=== PATIENT | female | born 1930 | race Caucasian/White ===

== ENCOUNTER 2016-03-17 09:37 | Outpatient (CLI) | payer MEDICARE, OTHER | END 2016-03-17 09:38 | disposition home or self-care (01) | DX: I10 Essential (primary) hypertension (principal); I25.10 Atherosclerotic heart disease of native coronary artery without angina pectoris; E78.00 Pure hypercholesterolemia, unspecified ==

== ENCOUNTER 2016-06-07 10:28 | Outpatient (CLI) | payer MEDICARE, OTHER | END 2016-06-07 10:29 | disposition home or self-care (01) | DX: E11.9 Type 2 diabetes mellitus without complications (principal) ==

== ENCOUNTER 2016-07-20 11:44 | Outpatient (CLI) | payer MEDICARE, OTHER ==
--- NOTE | 2016-07-21 10:08 | Mammography Report ---
DIGITAL BILATERAL SCREENING MAMMOGRAM: 07/20/2016 CLINICAL HISTORY: An 86-year-old female in for routine screening mammogram. The patient has no family history of breast cancer. The patient has had no prior breast surgeries. COMPARISON: 09/08/2006, 10/10/2007, 10/07/2008, 10/24/2009, 11/03/2010, 11/10/2011, 05/28/2013, 05/30. TECHNIQUE: Craniocaudad and oblique lateral views of each breast were obtained with [facility] profile d igital mammography. Exaggerated craniocaudad views were done bilaterally to complement the present ex am. FINDINGS: No significant clusters of calcification are seen. No significant masses are noted. No sig nificant change is seen. IMPRESSION: THE BREASTS APPEAR RADIOGRAPHICALLY BENIGN. BIRADS CATEGORY 1-NEGATIVE. RECOMMENDATION: ANNUAL BILATERAL SCREENING MAMMOGRAPHY. STANDARD QUALIFYING STATEMENTS 1. This examination was reviewed with the aid of Computer-Aided Detection (CAD). 2. A negative or benign imaging report should not delay biopsy if clinically suspicious findings are present. Consider surgical consultation if warranted. More than 5% of cancers are not identified by i maging. 3. Dense breasts may obscure an underlying neoplasm. JOB #: [id number] EXT JOB #:[id number]
== END 2016-07-20 11:45 | disposition home or self-care (01) ==
LOC: DI.S 11:44
PROVIDERS: ATTEND Family Medicine
DX: Z12.31 Encounter for screening mammogram for malignant neoplasm of breast (principal)
CPT/HCPCS: 77067

== ENCOUNTER 2016-07-20 12:43 | Outpatient (CLI) | payer MEDICARE, OTHER ==
[2016-07-20 18:37] LABS: BASOPHILS % (AUTO) 0.8 %; EOSINOPHILS # (AUTO) 0.3 10^3/uL (0.0-0.7); EOSINOPHILS % (AUTO) 4.1 %; HCT - HEMATOCRIT 36.6 % (37.0-47.0); LYMPHOCYTES # (AUTO) 1.6 10^3/uL (1.5-3.5); LYMPHOCYTES % (AUTO) 24.6 %; MEAN CORPUSCULAR HEMOGLOBIN 32.2 pg (27.0-31.0); MEAN CORPUSCULAR HGB CONC 32.7 g/dL (32.0-36.0); MEAN CORPUSCULAR VOLUME 98.3 fL (81.0-99.0); MEAN PLATELET VOLUME 9.1 fL (7.9-10.8); MONOCYTES # (AUTO) 0.7 10^3/uL (0.0-1.0); MONOCYTES % (AUTO) 10.5 %; NEUTROPHILS # (AUTO) 3.8 10^3/uL (1.5-6.6); RED BLOOD COUNT 3.72 10^6/uL (4.20-5.40); RED CELL DISTRIBUTION WIDTH 13.4 % (12.0-15.0); UNCORRECTED WHITE BLOOD COUNT 6.4 x10^3/uL; WHITE BLOOD COUNT 6.4 x10^3/uL (4.8-10.8)
[2016-07-20 18:40] LABS: ALBUMIN/GLOBULIN RATIO 1.5 (1.0-2.2); BILIRUBIN,TOTAL 0.6 mg/dL (0.2-1.0); CALCIUM 8.9 mg/dL (8.5-10.3); POTASSIUM 4.2 mmol/L (3.5-5.0); TOTAL PROTEIN 6.5 g/dL (6.7-8.2)
[2016-07-20 18:43] LABS: PT - PROTHROMBIN TIME 11.5 secs (9.9-12.6)
== END 2016-07-20 12:44 | disposition home or self-care (01) ==
LOC: LAB.F 12:43
PROVIDERS: ATTEND Internal Medicine
DX: I73.9 Peripheral vascular disease, unspecified (principal); I25.10 Atherosclerotic heart disease of native coronary artery without angina pectoris; E78.00 Pure hypercholesterolemia, unspecified
CPT/HCPCS: 36415; 80053; 85025; 85610

== ENCOUNTER 2016-12-10 09:31 | Outpatient (CLI) | payer MEDICARE, OTHER ==
[2016-12-10 18:40] LABS: ALBUMIN/GLOBULIN RATIO 1.1 (1.0-2.2); BILIRUBIN,TOTAL 0.4 mg/dL (0.2-1.0); BUN - BLOOD UREA NITROGEN 19 mg/dL (6-20); CARBON DIOXIDE - CO2 27 mmol/L (21-32); CHLORIDE 106 mmol/L (101-111); CHOL/HDL RATIO 2.6 (<4.4); CHOLESTEROL 157 mg/dL; GFR - MDRD 53 (>89); GLUCOSE 102 mg/dL (70-100); HDL CHOLESTEROL 60 mg/dL; LDL/HDL RATIO 1.4 (<4.4); POTASSIUM 4.2 mmol/L (3.5-5.0); SODIUM 141 mmol/L (135-145); TOTAL PROTEIN 6.8 g/dL (6.7-8.2); TRIGLYCERIDES 57 mg/dL; VLDL CHOLESTEROL 11 mg/dL
[2016-12-10 19:22] LABS: HEMOGLOBIN A1C 0.56 g/dL
== END 2016-12-10 09:32 | disposition home or self-care (01) ==
LOC: LAB.F 09:31
PROVIDERS: ATTEND Family Medicine
DX: I73.9 Peripheral vascular disease, unspecified (principal); I25.10 Atherosclerotic heart disease of native coronary artery without angina pectoris; E78.5 Hyperlipidemia, unspecified; E11.9 Type 2 diabetes mellitus without complications; I10 Essential (primary) hypertension; Z79.899 Other long term (current) drug therapy
CPT/HCPCS: 36415; 80053; 80061; 82043; 83036

== ENCOUNTER 2017-03-04 10:34 | Outpatient (CLI) | payer MEDICARE, OTHER ==
[2017-03-04 18:48] LABS: CALCIUM 9.5 mg/dL (8.5-10.3); CREATININE 0.9 mg/dL (0.4-1.0)
[2017-03-04 21:01] LABS: HB2 TOTAL 13.2 g/dL; HEMOGLOBIN A1C 0.55 g/dL
== END 2017-03-04 10:35 | disposition home or self-care (01) ==
LOC: LAB.F 10:34
PROVIDERS: ATTEND Family Medicine
DX: E78.5 Hyperlipidemia, unspecified (principal); E11.9 Type 2 diabetes mellitus without complications; I10 Essential (primary) hypertension
CPT/HCPCS: 36415; 80048; 83036

== ENCOUNTER 2017-03-14 12:20 | Emergency (ER) | payer MEDICARE, OTHER ==
--- NOTE | 2017-03-14 13:31 | XRAY Preliminary Report ---
Exam: XR CHEST 2 VIEW X-RAY IMPRESSION: Normal 2-view chest radiography. [facility] SITE ID: [id number]
--- NOTE | 2017-03-14 13:38 | XRAY Report ---
EXAM: CHEST RADIOGRAPHY EXAM DATE: 03/14/2017 01:12 PM. CLINICAL HISTORY: Cough. COMPARISON: 02/05/2009. TECHNIQUE: 2 views. FINDINGS: Lungs/Pleura: No focal opacities evident. No pleural effusion. No pneumothorax. Normal volumes. Mediastinum: Heart and mediastinal contours are unremarkable. Other: None. IMPRESSION: Normal 2-view chest radiography. [facility] Referring Provider Line: [phone] SITE ID: [id number]
--- NOTE | 2017-03-14 13:53 | ED Physician Documentation ---
History of Present Illness - Stated complaint Stated Complaint: GLF/FLU LIKE SYMPTOMS - Chief complaint Chief Complaint: Neuro - Additonal information Additional information: 86 y/o f hx HTN HLD DM sick for 3-5 days - sore throat fever myalgias cough severe fatigue with similar 2 days ago while standing at the counter talking she had syncope with no prodrom and collasped and fell firts onto her bottom then striking her head, brief LOC per SO, no CP palp or other sx first, FLEMING neck pain better but still tehre, also sactrum pain, no numbness or weakness Review of Systems Constitutional: reports: Fever, Chills, Myalgias Nose: reports: Congestion Respiratory: reports: Cough Musculoskeletal: reports: Neck pain Neurologic: reports: Headache. denies: Focal weakness, Numbness Endocrine: denies: Easy bruising / bleeding PD PAST MEDICAL HISTORY - Past Medical History Cardiovascular: Hypertension, High cholesterol Respiratory: None Endocrine/Autoimmune: Type 2 diabetes GI: None : None HEENT: None Psych: None Musculoskeletal: None Derm: None - Past Surgical History General: Cholecystectomy, Appendectomy, Colonoscopy - Present Medications Home Medications: Ambulatory Orders Medication Instructions Recorded Confirmed Atorvastatin [Lipitor] 40 mg PO DAILY 10/17/14 03/14/17 Benazepril HCl 40 mg PO DAILY 10/17/14 03/14/17 Metoprolol Succinate [Toprol Xl] 50 mg PO BID 10/17/14 03/14/17 Pregabalin [Lyrica] 100 mg PO DAILY 10/17/14 03/14/17 carBAMazepine [TEGretol] 100 mg PO DAILY 10/17/14 03/14/17 metFORMIN [Glucophage] 500 mg PO DAILY 10/17/14 03/14/17 Benzonatate [Tessalon] 100 mg PO TID PRN #20 capsule 03/14/17 Oseltamivir [Tamiflu] 75 mg PO BID #9 capsule 03/14/17 - Allergies Allergies/Adverse Reactions: Allergies Allergy/AdvReac Type Severity Reaction Status Date / Time azithromycin [From Zithromax] Allergy Hives Verified 03/14/17 12:45 Penicillins Allergy Hives Verified 03/14/17 12:45 PD ED PE NORMAL - Vitals Vital signs reviewed: Yes - General General: Alert and oriented X 3 - HEENT HEENT: Atraumatic, PERRL - Neck Neck: No: No bony TTP (diffuse) - Cardiac Cardiac: RRR - Respiratory Respiratory: No respiratory distress, Clear bilaterally - Abdomen Abdomen: Soft, Non tender - Back Back: Other (TTP sacral area) - Derm Derm: Normal color - Extremities Extremities: No deformity, Normal ROM s pain - Neuro Neuro: No motor deficit, No sensory deficit Results - Vitals Vitals: Vital Signs - 24 hr 03/14/17 12:41 Temperature 36.8 C Heart Rate 64 Respiratory 16 Rate Blood Pressure 126/95 H O2 Saturation 97 Oxygen O2 Source Room air - EKG (time done) 1401 Rate: Rate (enter#) (64) Rhythm: NSR Intervals: Normal AK Ischemia: Normal ST segments, Q waves (inferior c/w old process) - Labs Labs: Laboratory Tests 03/14/17 03/14/17 03/14/17 13:35 13:35 13:35 WBC 6.1 RBC 3.74 L Hgb 11.7 L Hct 35.2 L MCV 94.1 MCH 31.4 H MCHC 33.4 RDW 13.7 Plt Count 170 MPV 8.4 Neut # 4.7 Lymph # 0.6 L [place] # 0.8 Eos # 0.0 Baso # 0.0 Absolute Nucleated RBC 0.00 Nucleated RBC % 0.0 Sodium 133 L Potassium 4.5 Chloride 98 L Carbon Dioxide 22 Anion Gap 13.0 BUN 28 H Creatinine 1.0 Estimated GFR (MDRD) 53 L Glucose 144 H Calcium 8.8 Troponin I Influenza A (Rapid) POSITIVE H Influenza B (Rapid) Negative Influenza Types A,B Ag + H 03/14/17 13:35 WBC RBC Hgb Hct MCV MCH MCHC RDW Plt Count MPV Neut # Lymph # [place] # Eos # Baso # Absolute Nucleated RBC Nucleated RBC % Sodium Potassium Chloride Carbon Dioxide Anion Gap BUN Creatinine Estimated GFR (MDRD) Glucose Calcium Troponin I < 0.04 Influenza A (Rapid) Influenza B (Rapid) Influenza Types A,B Ag - Rads (name of study) CTH Radiology: See rad report (no acute) CTCS Radiology: See rad report (no acute) CXR Radiology: See rad report (poor insp but per rad no acute) pelvis Radiology: See rad report (no acute) sacrum Radiology: See rad report (no acute) PD MEDICAL DECISION MAKING - ED course ED course: influenza A syncope 2 days ago while standing up - could have been 2/2 illness and dehydration, NSR in ER and no further epsiodes for 2 days, feel safe to dc with tamiflu and dont think pt needs further inpt work up for syncope in this setting of having infuenza Departure - Departure Disposition: Home, Self Care Clinical Impression: Influenza A Condition: Good Instructions: ED Flu, Medication: Tamiflu (Oseltamivir) Follow-Up: Jose Luis Crespo MD [Primary Care Provider] - Prescriptions: Benzonatate [Tessalon] 100 mg PO TID PRN #20 capsule PRN Reason: to ease cough Oseltamivir [Tamiflu] 75 mg PO BID #9 capsule Comments: You CT scans and xrays were fine - no major injuries from your fall and no pneumonia At this point it seems likely you pass out secondary to be sick with the flu and dehydrated. I think it is safe for you to go home for now. But influenza can be very serious and some patients get pneumonia after being weakened by the flu - so if you feels worse in any way, please come back to the ER Please follow up with Dr Crespo - he may want to get an ultrasound of you heart and/or a wear at home heart monitor to be sure there is no other reason for you to have passed out
[2017-03-14 13:58] LABS: BASOPHILS % (AUTO) 0.5 %; EOSINOPHILS % (AUTO) 0.4 %; HGB - HEMOGLOBIN 11.7 g/dL (12.0-16.0); LYMPHOCYTES # (AUTO) 0.6 10^3/uL (1.5-3.5); MEAN CORPUSCULAR HEMOGLOBIN 31.4 pg (27.0-31.0); MEAN CORPUSCULAR HGB CONC 33.4 g/dL (32.0-36.0); MEAN CORPUSCULAR VOLUME 94.1 fL (81.0-99.0); MEAN PLATELET VOLUME 8.4 fL (7.9-10.8); MONOCYTES # (AUTO) 0.8 10^3/uL (0.0-1.0); MONOCYTES % (AUTO) 12.6 %; NEUTROPHILS # (AUTO) 4.7 10^3/uL (1.5-6.6); NEUTROPHILS % (AUTO) 77.5 %; PLT - PLATELET COUNT 170 10^3/uL (130-450); RED BLOOD COUNT 3.74 10^6/uL (4.20-5.40); RED CELL DISTRIBUTION WIDTH 13.7 % (12.0-15.0); WHITE BLOOD COUNT 6.1 x10^3/uL (4.8-10.8)
[2017-03-14 14:03] LABS: CALCIUM 8.8 mg/dL (8.5-10.3)
--- NOTE | 2017-03-14 15:14 | CT Report ---
EXAM: CT HEAD EXAM DATE: 03/14/2017 02:49 PM. CLINICAL HISTORY: Fall HI. COMPARISON: None. TECHNIQUE: Multiaxial CT images were obtained from the foramen magnum to the vertex. Reformats: Coron al. IV contrast: None. In accordance with CT protocol optimization, one or more of the following dose reduction techniques w ere utilized for this exam: automated exposure control, adjustment of mA and/or KV based on patient s ize, or use of iterative reconstructive technique. FINDINGS: Parenchyma: There is a moderate degree of diffuse periventricular and subcortical white matter hypode nsity. No midline shift. Negative for intracranial hemorrhage. Extraaxial Spaces: No subdural or epidural collections identified. Ventricles: Normal in size and position. Sinuses and Orbits: Imaged paranasal sinuses, orbits, and mastoids show no significant abnormality. Bones: No evidence of fracture or calvarial defect. Other: None. IMPRESSION: 1. Negative for intracranial hemorrhage or mass effect. 2. Moderate nonfocal white matter disease. Nonspecific but most commonly attributed to chronic microa ngiopathy. [facility] Referring Provider Line: [phone] SITE ID: [id number]
--- NOTE | 2017-03-14 15:14 | CT Preliminary Report ---
Exam: CT HEAD W/O IMPRESSION: 1. Negative for intracranial hemorrhage or mass effect. 2. Moderate nonfocal white matter disease. Nonspecific but most commonly attributed to chronic microa ngiopathy. [facility] SITE ID: [id number]
--- NOTE | 2017-03-14 15:19 | CT Report ---
EXAM: CT CERVICAL SPINE WITHOUT CONTRAST DATE: 03/14/2017 02:55 PM. HISTORY: Fall HI neck pain. COMPARISONS: None. TECHNIQUE: Thin-section axial images were acquired of the cervical spine without contrast. Post-proce ssing: Coronal and sagittal reformats. Other: None. In accordance with CT protocol optimization, one or more of the following dose reduction techniques w ere utilized for this exam: automated exposure control, adjustment of mA and/or KV based on patient s ize, or use of iterative reconstructive technique. FINDINGS: Alignment: There is 2 mm of retrolisthesis at C5-C6. Bones: No acute fracture. There is multilevel degenerative disease. There is periarticular calcificat ion around the anterior C1 and C2 articulation. Interspace Levels/Facets: There is moderate to severe disk height loss and endplate sclerosis with spurring at C5-C6 and C6-C7. There is moderate disk height loss at C2-C3 and C4-C5. Musculature: Normal. No fatty atrophy. Other: The paravertebral and prevertebral soft tissues are unremarkable. Trachea is midline. Lung api cortney appear clear. IMPRESSION: 1. Multilevel degenerative disk disease with disk osteophyte spurring, greatest at C5-C6. No fracture . Mild degenerative retrolisthesis at C5-C6. [facility] Referring Provider Line: [phone] SITE ID: [id number]
--- NOTE | 2017-03-14 15:19 | CT Preliminary Report ---
Exam: CT CERVICAL SPINE W/O IMPRESSION: 1. Multilevel degenerative disk disease with disk osteophyte spurring, greatest at C5-C6. No fracture . Mild degenerative retrolisthesis at C5-C6. [facility] SITE ID: [id number]
--- NOTE | 2017-03-14 15:22 | XRAY Preliminary Report ---
Exam: XR PELVIS 1 VIEW IMPRESSION: Degenerative changes. No evidence for acute fracture. [facility] SITE ID: [id number]
--- NOTE | 2017-03-14 15:22 | XRAY Preliminary Report ---
Exam: XR SACRUM/COCCYX IMPRESSION: Degenerative changes. No evidence for acute fracture. [facility] SITE ID: [id number]
--- NOTE | 2017-03-14 15:22 | XRAY Report ---
EXAM: PELVIS RADIOGRAPHY ONE VIEW SACRUM/COCCYX RADIOGRAPHY 3 VIEWS EXAM DATE: 03/14/2017 03:05 PM. CLINICAL HISTORY: Fall pain. COMPARISON: None. FINDINGS: Bones: No evidence for acute fracture. Joints: Mild bilateral hip, sacroiliac and pubic symphysis degenerative joint disease. No dislocation . Severe degenerative disk disease at L5-S1. Soft Tissues: No acute findings seen. IMPRESSION: Degenerative changes. No evidence for acute fracture. [facility] Referring Provider Line: [phone] SITE ID: [id number]
--- NOTE | 2017-03-14 15:22 | XRAY Report ---
EXAM: PELVIS RADIOGRAPHY ONE VIEW SACRUM/COCCYX RADIOGRAPHY 3 VIEWS EXAM DATE: 03/14/2017 03:05 PM. CLINICAL HISTORY: Fall pain. COMPARISON: None. FINDINGS: Bones: No evidence for acute fracture. Joints: Mild bilateral hip, sacroiliac and pubic symphysis degenerative joint disease. No dislocation . Severe degenerative disk disease at L5-S1. Soft Tissues: No acute findings seen. IMPRESSION: Degenerative changes. No evidence for acute fracture. [facility] Referring Provider Line: [phone] SITE ID: [id number]
[2017-03-14] MEDS ORDERED: OSELTAMIVIR 75 MG CAPSULE PO STA (16:24)
[2017-03-14 17:11] VITALS: BP 124/59
== END 2017-03-14 17:16 | disposition home or self-care (01) ==
LOC: ED 12:20
DX: J10.1 Influenza due to other identified influenza virus with other respiratory manifestations (principal); R55 Syncope and collapse; Z91.81 History of falling; I10 Essential (primary) hypertension; E11.9 Type 2 diabetes mellitus without complications; E78.00 Pure hypercholesterolemia, unspecified; Z79.84 Long term (current) use of oral hypoglycemic drugs
CPT/HCPCS: 36415; 70450; 71046; 72125; 72170; 72220; 80048; 84484; 85025; 87275; 87276; 93005; 99283; 99284; A9270

== ENCOUNTER 2017-04-11 10:35 | Outpatient (CLI) | payer MEDICARE, OTHER ==
--- NOTE | 2017-04-11 15:17 | DEXA Report ---
DEXA SCAN: 04/11/2017 CLINICAL INDICATION: Osteoporosis. TECHNIQUE: Dual energy x-ray absorptiometry (DXA) was performed on a babbel system. Regions measured are the AP spine, femoral neck, and, if needed, forearm. COMPARISON: None. In accordance with the International Society for Clinical Densitometry (ISCD) guidelines, data from previous exams may be reanalyzed using current recommendations and techniques. This is done to allow a more accurate basis for comparison with the current study. FINDINGS The data for the lumbar spine is as follows: REGION BMD (g/cm/cm) T-SCORE Z-SCORE L1 1.443 2.6 4.7 L2 1.514 2.6 4.7 L3 1.695 4.1 6.2 L4 1.917 6.0 8.0 TOTAL 1.642 3.8 5.9 NOTE: All evaluable vertebrae are used for classification. The data for the hip is as follows: REGION BMD (g/cm/cm) T-SCORE Z-SCORE Neck 0.829 -1.5 1.0 TOTAL 0.892 -0.9 1.5 NOTE: The femoral neck or total proximal femur, whichever is lowest, is used for classification. IMPRESSION: THE WHO CLASSIFICATION BASED ON THE INTERNATIONAL REFERENCE STANDARD IS OSTEOPENIA (REFERENCE LEFT FEMORAL NECK). THE FRACTURE RISK IS INCREASED. RECOMMENDATION: Patients with diagnosis of osteoporosis or osteopenia should have regular bone mineral density assessment. For those eligible for Medicare, routine testing is allowed once every 2 years. Testing frequency can be increased for patients who have rapidly progressing disease or for those who are receiving medical therapy to restore bone mass. COMMENT: World Health Organization (WHO) definitions for osteoporosis and osteopenia: NORMAL BMD: T-score at 1.0 or higher, fracture risk is low. OSTEOPENIA BMD: T-score between 1.0 and -2.5, fracture risk is increased. OSTEOPOROSIS BMD: T-score at 2.5 or lower, fracture risk high. National Osteoporosis Foundation recommends: 1. Obtain adequate dietary calcium (at least 1200 mg per day) and vitamin D (400 -800 international units per day). 2. Participate, as appropriate, in regular weightbearing and muscle- strengthening exercise. 3. Avoid tobacco use and reduce alcohol and caffeine intake. 4. For more detailed information see the website at www.NOF.org. TD: 04/11/2017 12:19 MTDD
== END 2017-04-11 10:36 | disposition home or self-care (01) ==
LOC: DI 10:35
PROVIDERS: ATTEND Family Medicine
DX: M85.88 Other specified disorders of bone density and structure, other site (principal)
CPT/HCPCS: 77080

== ENCOUNTER 2017-05-23 09:05 | Outpatient (CLI) | payer MEDICARE, OTHER ==
[2017-05-23 17:48] LABS: BASOPHILS # (AUTO) 0.1 10^3/uL (0.0-0.1); BASOPHILS % (AUTO) 0.9 %; EOSINOPHILS # (AUTO) 0.6 10^3/uL (0.0-0.7); EOSINOPHILS % (AUTO) 9.1 %; HGB - HEMOGLOBIN 12.1 g/dL (12.0-16.0); LYMPHOCYTES # (AUTO) 1.2 10^3/uL (1.5-3.5); LYMPHOCYTES % (AUTO) 19.5 %; MEAN CORPUSCULAR HEMOGLOBIN 31.6 pg (27.0-31.0); MEAN CORPUSCULAR HGB CONC 32.4 g/dL (32.0-36.0); MEAN CORPUSCULAR VOLUME 97.5 fL (81.0-99.0); MEAN PLATELET VOLUME 8.5 fL (7.9-10.8); MONOCYTES # (AUTO) 0.7 10^3/uL (0.0-1.0); MONOCYTES % (AUTO) 11.5 %; NEUTROPHILS # (AUTO) 3.6 10^3/uL (1.5-6.6); PLT - PLATELET COUNT 233 10^3/uL (130-450); RED BLOOD COUNT 3.83 10^6/uL (4.20-5.40); RED CELL DISTRIBUTION WIDTH 14.5 % (12.0-15.0); WHITE BLOOD COUNT 6.1 x10^3/uL (4.8-10.8)
[2017-05-23 18:11] LABS: ALBUMIN 3.7 g/dL (3.2-5.5); ALBUMIN/GLOBULIN RATIO 1.3 (1.0-2.2); ALKALINE PHOSPHATASE 61 IU/L (42-121); ALT ALANINE AMINOTRANSFERASE 29 IU/L (10-60); AST ASPARTATE AMINOTRANSFERASE 29 IU/L (10-42); BILIRUBIN,TOTAL 0.6 mg/dL (0.2-1.0); BUN - BLOOD UREA NITROGEN 27 mg/dL (6-20); CALCIUM 8.9 mg/dL (8.5-10.3); CARBON DIOXIDE - CO2 26 mmol/L (21-32); CHLORIDE 107 mmol/L (101-111); CHOL/HDL RATIO 2.6 (<4.4); CHOLESTEROL 149 mg/dL; CREATININE 0.8 mg/dL (0.4-1.0); GFR - MDRD 68 (>89); GLUCOSE 106 mg/dL (70-100); HDL CHOLESTEROL 57 mg/dL; LDL CHOLESTEROL,CALCULATED 81 mg/dL; LDL/HDL RATIO 1.4 (<4.4); SODIUM 140 mmol/L (135-145); TOTAL PROTEIN 6.5 g/dL (6.7-8.2); VLDL CHOLESTEROL 11 mg/dL
== END 2017-05-23 09:06 | disposition home or self-care (01) ==
LOC: LAB.S 09:05
PROVIDERS: ATTEND Internal Medicine
DX: I25.10 Atherosclerotic heart disease of native coronary artery without angina pectoris (principal); E78.00 Pure hypercholesterolemia, unspecified
CPT/HCPCS: 36415; 80053; 80061; 83721; 84443; 85025

== ENCOUNTER 2017-05-31 08:00 | Outpatient (CLI) | payer MEDICARE, OTHER ==
[2017-05-31 17:27] LABS: CALCIUM 9.2 mg/dL (8.5-10.3); CREATININE 0.9 mg/dL (0.4-1.0)
[2017-05-31 17:49] LABS: HB2 TOTAL 12.5 g/dL; HEMOGLOBIN A1C 0.52 g/dL
== END 2017-05-31 08:01 | disposition home or self-care (01) ==
LOC: LAB.F 08:00
PROVIDERS: ATTEND Family Medicine
DX: I25.10 Atherosclerotic heart disease of native coronary artery without angina pectoris (principal); E11.9 Type 2 diabetes mellitus without complications; I10 Essential (primary) hypertension; M81.0 Age-related osteoporosis without current pathological fracture
CPT/HCPCS: 36415; 80048; 83036

== ENCOUNTER 2017-07-13 09:40 | Outpatient (CLI) | payer MEDICARE, OTHER ==
--- NOTE | 2017-07-19 13:22 | Mammography Report ---
DIGITAL SCREENING MAMMOGRAM: 07/13/2017 CLINICAL INDICATION: An 87-year-old for screening. COMPARISON: 06/2016, 05/2014, 04/2013, 10/2011, 10/2010. TECHNIQUE: Routine CC and MLO projections were obtained of the breasts. FINDINGS: Parenchymal tissue within both breasts is heterogeneously dense, which may lower the sensitivity of mammography; however, there are no dominant masses, suspicious microcalcifications, or secondary signs of malignancy. In comparison to the previous studies, there are no significant changes. IMPRESSION: NO MAMMOGRAPHIC EVIDENCE OF MALIGNANCY. NO SIGNIFICANT INTERVAL CHANGES. RECOMMENDATION: Screening mammography is recommended annually. BIRADS CATEGORY 1 - NEGATIVE. STANDARD QUALIFYING STATEMENTS: 1. This examination was reviewed with the aid of Computed-Aided Detection (CAD). 2. A negative or benign imaging report should not delay biopsy if clinically suspicious findings are present. Consider surgical consultation if warranted. More than 5% of cancers are not identified by imaging. 3. Dense breasts may obscure an underlying neoplasm. TD: 07/19/2017 13:13
== END 2017-07-13 09:41 | disposition home or self-care (01) ==
LOC: DI.S 09:40
PROVIDERS: ATTEND Family Medicine
DX: Z12.31 Encounter for screening mammogram for malignant neoplasm of breast (principal)
CPT/HCPCS: 77067

== ENCOUNTER 2017-09-08 14:42 | Outpatient (CLI) | payer MEDICARE, OTHER ==
[2017-09-08 18:01] LABS: HB2 TOTAL 12.7 g/dL; HEMOGLOBIN A1C 0.6 g/dL; HEMOGLOBIN A1C % 6.5 % (4.6-6.2)
[2017-09-08 18:04] LABS: CALCIUM 9.4 mg/dL (8.5-10.3)
== END 2017-09-08 14:43 | disposition home or self-care (01) ==
LOC: LAB.F 14:42
PROVIDERS: ATTEND Family Medicine
DX: E11.9 Type 2 diabetes mellitus without complications (principal); I10 Essential (primary) hypertension
CPT/HCPCS: 36415; 80048; 83036

== ENCOUNTER 2017-12-26 08:10 | Outpatient (CLI) | payer MEDICARE, OTHER ==
[2017-12-26 10:37] LABS: CREATININE,URINE 84.6 mg/dL
[2017-12-26 10:45] LABS: MICROALBUMIN,URINE < 0.3 mg/dL (0-300.0)
[2017-12-26 10:51] LABS: BUN - BLOOD UREA NITROGEN 29 mg/dL (6-20); CALCIUM 9.3 mg/dL (8.5-10.3); CARBON DIOXIDE - CO2 29 mmol/L (21-32); CHLORIDE 105 mmol/L (101-111); CHOL/HDL RATIO 2.8 (<4.4); CHOLESTEROL 164 mg/dL; CREATININE 0.9 mg/dL (0.4-1.0); GFR - MDRD 59 (>89); GLUCOSE 125 mg/dL (70-100); HDL CHOLESTEROL 58 mg/dL; LDL CHOLESTEROL,CALCULATED 91 mg/dL; LDL/HDL RATIO 1.6 (<4.4); SODIUM 142 mmol/L (135-145); VLDL CHOLESTEROL 15 mg/dL
[2017-12-26 11:07] LABS: HB2 TOTAL 12.7 g/dL; HEMOGLOBIN A1C 0.55 g/dL; HEMOGLOBIN A1C % 6.1 % (4.6-6.2)
== END 2017-12-26 08:11 | disposition home or self-care (01) ==
LOC: LAB.F 08:10
PROVIDERS: ATTEND Family Medicine
DX: E11.9 Type 2 diabetes mellitus without complications (principal)
CPT/HCPCS: 36415; 80048; 80061; 82043; 82570; 83036; 83721

== ENCOUNTER 2019-01-02 10:57 | Outpatient (CLI) | payer MEDICARE, OTHER ==
--- NOTE | 2019-01-03 09:16 | Mammography Report ---
Reason: MAMMOGRAM SCREENING, SELF REFERRED, Z12.31 Procedure Date: 01/02/2019 Accession Number: [id number] / [id number] Procedure: MGS - Screening Mammo Dig Bilat CPT Code: Final Report FULL RESULT: EXAM: Screening Mammo Dig Bilat DATE: 01/02/2019 11:18 AM CLINICAL HISTORY: Screening encounter. TECHNIQUE: (B) - Bilateral CC and MLO views were obtained. COMPARISON: 07/13/2017 through 10/24/2009. PARENCHYMAL PATTERN: (D) - The breast(s) demonstrate(s) heterogeneously dense fibroglandular parenchyma. FINDINGS: There are typically benign vascular calcifications. There are no suspicious masses, calcifications, or areas of distortion. IMPRESSION: Benign findings. BI-RADS category 2. RECOMMENDATION: (ANNUAL) - Recommend routine annual screening mammography. BI-RADS CATEGORY: (2) - Benign Findings. STANDARD QUALIFYING STATEMENTS: 1. This examination was reviewed with the aid of Computer-Aided Detection (CAD). 2. A negative or benign imaging report should not preclude biopsy if clinically suspicious findings are present. 3. Dense breasts may obscure an underlying neoplasm. 4. This examination was reviewed without the aid of 3D breast imaging (tomosynthesis).
== END 2019-01-02 10:58 | disposition home or self-care (01) ==
LOC: DI.S 10:57
PROVIDERS: ATTEND Family Medicine
DX: Z12.31 Encounter for screening mammogram for malignant neoplasm of breast (principal)
CPT/HCPCS: 77067

== ENCOUNTER 2020-12-10 17:38 | Emergency (ER) | payer MEDICARE, OTHER ==
--- NOTE | 2020-12-10 18:16 | ED Physician Documentation ---
History of Present Illness - Stated complaint Stated Complaint: GLF - Chief complaint Chief Complaint: Trauma Hd/Nk - History obtained from History obtained from: Patient, Family - History of Present Illness Timing: How many minutes ago (30) Pain level max: 6 Pain level now: 5 - Additonal information Additional information: 89-year-old female presents to the emergency department after being found down outside today by her . She has no memory of the event. She does not recall why she was outside or what she was doing. Has been found her face down and gravel and is on the concrete. He thinks he may have been outside for 15 to 20 minutes. This occurred about 30 minutes prior to arrival. Patient states she is not on any blood thinners. Complaining of head, neck and facial pain. Review of Systems Ten Systems: 10 systems reviewed and negative Constitutional: denies: Fever, Chills Respiratory: denies: Cough GI: denies: Nausea, Vomiting, Diarrhea Skin: denies: Rash Musculoskeletal: reports: Neck pain. denies: Back pain Neurologic: reports: Headache, Head injury, LOC PD PAST MEDICAL HISTORY - Past Medical History Cardiovascular: Hypertension, High cholesterol Respiratory: None Endocrine/Autoimmune: Type 2 diabetes GI: None : None HEENT: None Psych: None Musculoskeletal: None Derm: None - Past Surgical History Past Surgical History: Yes General: Cholecystectomy, Appendectomy, Colonoscopy - Present Medications Home Medications: Ambulatory Orders Medication Instructions Recorded Confirmed Atorvastatin [Lipitor] 40 mg PO DAILY 10/17/14 12/10/20 Benazepril HCl 40 mg PO DAILY 10/17/14 12/10/20 Metoprolol Succinate [Toprol Xl] 50 mg PO BID 10/17/14 12/10/20 Pregabalin [Lyrica] 100 mg PO DAILY 10/17/14 12/10/20 carBAMazepine [TEGretol] 100 mg PO DAILY 10/17/14 12/10/20 metFORMIN [Glucophage] 500 mg PO BID 10/17/14 12/10/20 - Allergies Allergies/Adverse Reactions: Allergies Allergy/AdvReac Type Severity Reaction Status Date / Time azithromycin [From Zithromax] Allergy Hives Verified 03/14/17 12:45 Penicillins Allergy Hives Verified 03/14/17 12:45 - Social History Does the pt smoke?: No Smoking Status: Never smoker Does the pt have substance abuse?: No PD ED PE NORMAL - Vitals Vital signs reviewed: Yes - General General: Alert and oriented X 3, No acute distress, Well developed/nourished - HEENT HEENT: PERRL, EOMI, Moist mucous membranes, Pharynx benign, Other (Left orbit periorbital ecchymosis. Normal pupil. Extraocular movements intact. No hyphema. Normal vision. Tender to palpation around the left orbit and over the bridge of the nose. Dentition intact.) - Neck Neck: Supple, no meningeal sign, No bony TTP - Cardiac Cardiac: RRR - Respiratory Respiratory: No respiratory distress, Clear bilaterally - Abdomen Abdomen: Soft, Non tender, Non distended - Back Back: No spinal TTP - Derm Derm: Warm and dry - Extremities Extremities: Other (Mild abrasion to the bilateral palms. 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, No motor deficit, No sensory deficit, Normal speech Eye Opening: Spontaneous Motor: Obeys Commands Verbal: Oriented GCS Score: 15 - Psych Psych: Normal mood, Normal affect Results - Vitals Vitals: Vital Signs - 24 hr 12/10/20 12/10/20 12/10/20 20:02 20:14 20:45 Temperature 36.5 C Heart Rate 62 63 63 Respiratory 12 16 16 Rate Blood Pressure 177/79 H 177/79 H 193/72 H O2 Saturation 96 96 94 12/10/20 12/10/20 21:00 21:15 Temperature Heart Rate 62 65 Respiratory 12 18 Rate Blood Pressure 181/84 H 160/94 H O2 Saturation 96 99 Oxygen O2 Source Room air - EKG (time done) 1804 Rate: Rate (enter#) (61) Rhythm: NSR Olin: Normal Intervals: Normal IA QRS: Normal Ischemia: Normal ST segments, Q waves (III, aVF) - Labs Labs: Laboratory Tests 12/10/20 12/10/20 12/10/20 18:05 18:05 18:05 WBC 10.4 RBC 3.68 L Hgb 12.0 Hct 37.5 MCV 101.9 H MCH 32.6 H MCHC 32.0 RDW 13.3 Plt Count 225 MPV 10.4 Neut # (Auto) 7.4 H Lymph # (Auto) 1.4 L Chaves # (Auto) 1.0 Eos # (Auto) 0.4 Baso # (Auto) 0.1 Absolute Nucleated RBC 0.00 Nucleated RBC % 0.0 Sodium 138 Potassium 4.3 Chloride 103 Carbon Dioxide 25 Anion Gap 10.0 BUN 27 H Creatinine 1.0 Estimated GFR (MDRD) 52 L Glucose 93 POC Whole Bld Glucose Calcium 8.9 Total Bilirubin 0.4 AST 30 ALT 31 Alkaline Phosphatase 77 Troponin I High Sens 6.1 Total Protein 6.7 Albumin 3.9 Globulin 2.8 Albumin/Globulin Ratio 1.4 Lipase 25 12/10/20 18:05 WBC RBC Hgb Hct MCV MCH MCHC RDW Plt Count MPV Neut # (Auto) Lymph # (Auto) Chaves # (Auto) Eos # (Auto) Baso # (Auto) Absolute Nucleated RBC Nucleated RBC % Sodium Potassium Chloride Carbon Dioxide Anion Gap BUN Creatinine Estimated GFR (MDRD) Glucose POC Whole Bld Glucose 86 Calcium Total Bilirubin AST ALT Alkaline Phosphatase Troponin I High Sens Total Protein Albumin Globulin Albumin/Globulin Ratio Lipase - Rads (name of study) cxr Radiology: Final report received, EMP read contemporaneously, See rad report ( Bilateral lung interstitial prominence which could represent chronic lung disease, pulmonary edema or atypical pneumonia) head CT Radiology: Final report received, EMP read contemporaneously, See rad report (. No acute intracranial disease process. Inferior left orbit wall blowout fracture. ) cervical spine CT Radiology: Final report received, EMP read contemporaneously, See rad report (No fracture. No acute osseous lesion.) maxillofacial CT Radiology: Final report received, EMP read contemporaneously, See rad report (1. Left inferior orbital wall blowout fracture. 2. Bilateral nasal bone fractures. 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 No evidence of syncope, chest pain. Does not want to stay in the hospital for observation and telemetry monitoring. Declines pain medication here or for home. Does have a left orbital blowout fracture, inferiorly as well as nasal bone fractures. No active bleeding in the emergency department, though did have a very small episode of epistaxis just prior to discharge which resolved within about 1 to 2 minutes without intervention. Vision is normal. No evidence of ocular injury, periorbital fractures present. Discussed the case with Dr. Mary kramer, oral maxillofacial surgery who will follow up with the patient in the office next week to determine if surgery is needed. Patient and family counseled regarding signs and symptoms for which I believe and urgent re- evaluation would be necessary. Patient with good understanding of and agreement to plan and is comfortable going home at this time This document was made in part using voice recognition software. While efforts are made to proofread this document, sound alike and grammatical errors may occur. Departure - Departure Disposition: Home, Self Care Clinical Impression: Orbital floor (blow-out) closed fracture Nasal bone fractures Qualifiers: Encounter type: initial encounter Fracture type: closed Qualified Code(s): S02.2XXA - Fracture of nasal bones, initial encounter for closed fracture Condition: Good Instructions: Fx Facial, ED Head Injury Closed Follow-Up: LORI KEENE MD [Primary Care Provider] - GAEL HUGHES [Physician No Access] - Gael Hughes DDS [Provider Admit Priv/Credential] - Comments: Follow-up with Dr. Hughes for further care. Make sure you see him next week. Return if you worsen. You can use Tylenol as needed for pain. Try not to blow your nose. IMPRESSION: 1. Left inferior orbital wall blowout fracture. 2. Bilateral nasal bone fractures. Discharge Date/Time: 12/10/20 21:15
[2020-12-10 18:20] LABS: BASOPHILS # (AUTO) 0.1 10^3/uL (0.0-0.1); BASOPHILS % (AUTO) 0.8 %; EOSINOPHILS # (AUTO) 0.4 10^3/uL (0.0-0.7); EOSINOPHILS % (AUTO) 4.1 %; HCT - HEMATOCRIT 37.5 % (37.0-47.0); LYMPHOCYTES # (AUTO) 1.4 10^3/uL (1.5-3.5); LYMPHOCYTES % (AUTO) 13.4 %; MEAN CORPUSCULAR HEMOGLOBIN 32.6 pg (27.0-31.0); MEAN CORPUSCULAR VOLUME 101.9 fL (81.0-99.0); MEAN PLATELET VOLUME 10.4 fL (7.9-10.8); MONOCYTES % (AUTO) 9.8 %; NEUTROPHILS # (AUTO) 7.4 10^3/uL (1.5-6.6); NEUTROPHILS % (AUTO) 71.3 %; PLT - PLATELET COUNT 225 10^3/uL (130-450); RED BLOOD COUNT 3.68 10^6/uL (4.20-5.40); RED CELL DISTRIBUTION WIDTH 13.3 % (12.0-15.0); WHITE BLOOD COUNT 10.4 x10^3/uL (4.8-10.8)
[2020-12-10 18:31] LABS: ALBUMIN 3.9 g/dL (3.2-5.5); ALBUMIN/GLOBULIN RATIO 1.4 (1.0-2.2); BILIRUBIN,TOTAL 0.4 mg/dL (0.2-1.0); CALCIUM 8.9 mg/dL (8.5-10.3); POTASSIUM 4.3 mmol/L (3.5-5.0); TOTAL PROTEIN 6.7 g/dL (6.7-8.2)
--- NOTE | 2020-12-10 18:59 | CT Report ---
PROCEDURE: CERVICAL SPINE WO INDICATIONS: fall, neck pain TECHNIQUE: Noncontrast 3 mm thick sections acquired from the skull base to the T4 level. Sagittal and coronal r eformats were then constructed. For radiation dose reduction, the following was used: automated exp osure control, adjustment of mA and/or kV according to patient size. COMPARISON: 03/14/2017. FINDINGS: Image quality: Excellent. Bones: No fractures or dislocations. 3 C5-C6 degenerative retrolisthesis is stable compared to the p rior exam. Visualized superior ribs are intact. Spine degenerative disc disease and facet arthropathy are noted. Soft tissues: Prevertebral soft tissues are normal in thickness. No paravertebral hematomas. No ap ical pneumothoraces. IMPRESSION: No fracture. No acute osseous lesion. If there is continued clinical concern for pathology, then MRI should be considered for further evaluation. Reviewed by: Cecilia Otero MD, PhD on 12/10/2020 6:57 PM PDT Approved by: Cecilia Otero MD, PhD on 12/10/2020 6:57 PM PDT Station ID: [id number]
--- NOTE | 2020-12-10 19:01 | CT Report ---
PROCEDURE: HEAD WO INDICATIONS: fall, head injury TECHNIQUE: Noncontrast 4.5 mm thick angled axial sections acquired from the foramen magnum to the vertex. For r adiation dose reduction, the following was used: automated exposure control, adjustment of mA and/or kV according to patient size. COMPARISON: None. FINDINGS: Image quality: Excellent. CSF spaces: Basal cisterns are patent. No extra-axial fluid collections. Ventricles are normal in size and shape. Brain: No midline shift. No intracranial masses or hemorrhage. There is mild, diffuse cerebral vol ume loss. There are moderate periventricular and subcortical white matter chronic microvascular ische jaylen changes. Alvarado-white matter interface is normal. Atherosclerotic calcifications noted in the inter nal carotid arteries bilaterally. Skull and face: Fracture of the left inferior orbital wall is noted. Segmented fracture fragment asso ciated with the left inferior orbital wall fracture is displaced into the left maxillary sinus. Bilat eral nasal bone fractures of indeterminate age. Left periorbital facial soft tissue swelling is noted . Sinuses: Hemorrhage is noted in the left maxillary sinus and posterior left ethmoid air cells. Mastoi ds are clear. IMPRESSION: 1. No acute intracranial disease process. 2. Inferior left orbit wall blowout fracture. Reviewed by: Cecilia Otero MD, PhD on 12/10/2020 7:00 PM PDT Approved by: Cecilia Otero MD, PhD on 12/10/2020 7:00 PM PDT Station ID: [id number]
--- NOTE | 2020-12-10 19:06 | CT Report ---
PROCEDURE: MAXILLOFACIAL WO INDICATIONS: fall, facial/L orbit trauma TECHNIQUE: Noncontrast 1.5 mm thick axial images acquired from the mandible through the frontal sinuses, with co layne and sagittal reformatting. For radiation dose reduction, the following was used: automated ex posure control, adjustment of mA and/or kV according to patient size. COMPARISON: None. FINDINGS: Image quality: Excellent. Bones and teeth: Blowout fracture of the inferior left orbital wall is noted. Multiple segmented frac ture fragments associated with the left inferior orbital wall fracture are displaced into the left ma xillary sinus. Bilateral mildly displaced nasal bone fractures are noted. Nasal septum is intact. Mil dly displaced fracture of the anterior maxillary spine. Visualized portions of the mandible demonstra te no fractures or subluxation. Zygomatic arches are intact. Pterygoid plates are intact. Visualiz ed portions of the skull base and auditory canals are intact. Sinuses: Hemorrhage is identified in the left maxillary sinus, the posterior left ethmoid air cells a nd left sphenoid sinus. Mastoid air cells are aerated. Soft tissues: Left periorbital and perinasal facial soft tissue swelling. No enlarged lymph nodes. N o soft tissue lacerations or debris. Vascular: Visualized vascular structures appear normal in the absence of contrast. Atherosclerotic c alcifications noted in the internal carotid arteries. Bony vascular foramina and canals are intact. IMPRESSION: 1. Left inferior orbital wall blowout fracture. 2. Bilateral nasal bone fractures. Reviewed by: Cecilia Otero MD, PhD on 12/10/2020 7:05 PM PDT Approved by: Cecilia Otero MD, PhD on 12/10/2020 7:05 PM PDT Station ID: [id number]
--- NOTE | 2020-12-10 19:07 | XRAY Report ---
PROCEDURE: Chest 1 View X-Ray INDICATIONS: Chest Pain TECHNIQUE: One view of the chest was acquired. COMPARISON: 03/14/2017. FINDINGS: Surgical changes and devices: None. Lungs and pleura: No pleural effusions or pneumothorax. Interstitial prominence noted in the lungs b ilaterally. Mediastinum: Mediastinal contours appear normal. Heart size is normal. Bones and chest wall: No suspicious bony lesions. Overlying soft tissues appear unremarkable. IMPRESSION: Bilateral lung interstitial prominence which could represent chronic lung disease, pulmonary edema or atypical pneumonia. Reviewed by: Cecilia Otero MD, PhD on 12/10/2020 7:06 PM PDT Approved by: Cecilia Otero MD, PhD on 12/10/2020 7:06 PM PDT Station ID: [id number]
[2020-12-10] MEDS ORDERED: TETANUS/DIPHTHERIA/PERTUSSIS 0.5 ML SYRINGE IM ONE (20:42)
[2020-12-10] MEDS ORDERED: TRANEXAMIC ACID 1,000 MG/10 ML VIAL NAS STA (20:54)
[2020-12-10] MEDS ORDERED: OXYMETAZOLINE HCL 100 SPRAYS BOTTLE NAS STA (20:54)
[2020-12-10 22:38] VITALS: BP 160/94
== END 2020-12-10 21:15 | disposition home or self-care (01) ==
LOC: ED 17:38
DX: S02.32XA Fracture of orbital floor, left side, initial encounter for closed fracture (principal); S02.2XXA Fracture of nasal bones, initial encounter for closed fracture; S60.512A Abrasion of left hand, initial encounter; S60.511A Abrasion of right hand, initial encounter; W18.30XA Fall on same level, unspecified, initial encounter; Z23 Encounter for immunization; M47.812 Spondylosis without myelopathy or radiculopathy, cervical region; I10 Essential (primary) hypertension; E11.9 Type 2 diabetes mellitus without complications; Z79.84 Long term (current) use of oral hypoglycemic drugs
CPT/HCPCS: 36415; 80053; 83690; 84484; 85025; 90471; 93005; 99284